=== PATIENT | male | born 1990 | race African-American/Black ===

== ENCOUNTER 2018-08-09 13:18 | Emergency (ER) | payer OTHER ==
[~2018-08-09] VITALS: Ht 172.7 cm; Wt 69.8 kg
[~2018-08-09 13:18] MED LIST: IBUPROFEN 600600 M1 PO; PRILOSEC 10MG C10 M1
== END 2018-08-09 14:20 | disposition home or self-care (01) ==
LOC: ER 13:18
DX: R19.7 Diarrhea, unspecified (principal)